=== PATIENT | female | born 1980 | race Caucasian/White ===

== ENCOUNTER → 2024-06-04 07:29 | Outpatient (REF) | payer OTHER, SELFPAY | LOC: WDC 07:29 | PROVIDERS: ATTENDING PHYSICIAN Nurse Practitioner Adult Health | DX: Z12.31 Encounter for screening mammogram for malignant neoplasm of breast (principal) | CPT/HCPCS: 77063; 77067 ==

== ENCOUNTER 2024-06-15 23:21 | Emergency (ER) | payer OTHER, SELFPAY ==
[2024-06-15 23:28] VITALS: BP 162/116
--- NOTE | 2024-06-16 00:23 | ED.GENMED ---
History of Present Illness
General
Chief Complaint: Breathing Problem
Source: patient
Exam Limitations: none
Time Seen by Provider: 06/16/24 00:12
History of Present Illness
History of Present Illness:
This is a 44 year old female that comes in with c/o cough. Stae that on Friday she went to Urgent care. States that she was told she had Bronchitis and started on Doxycycline. State that she started to get better and then today the cough just
seemed to get worse. States that her chest felt tight. States that she used her Inhaler and she could still hear herself wheezing when she laid down. States that she has had some diarrhea which she feels is due to the antibiotics. States that she
feels slightly SOB. Denies any fever, chills, chest pain, abd pain, nausea, vomiting, headache, dizziness, urinary burning.
Past History
Past History
ED Past Medical History: GERD, Hypothyroidism and Psychiatric (Anxiety, Depression)
ED Past Surgical History: Gynecological (Endometrial ablation, Tubal) and Other (Eye surgery, Sinus surgery)
Social History
Tobacco: Smoker
Alcohol: Occasional
Personal:
Living: with family
Employment: Employed
Review of Systems
Review of Systems
All Other Systems: ROS reviewed and negative except as documented in HPI and ROS
Constitutional: Reports no symptoms; Denies fever or chills
EENT: Reports no symptoms
Respiratory: Reports cough and trouble breathing
Cardiac: Reports no symptoms; Denies chest pain
ABD/GI: Reports diarrhea; Denies abdominal pain, nausea or vomiting
: Reports no symptoms; Denies dysuria, frequency or urgency
Musculoskeletal: Reports no symptoms
Skin: Reports no symptoms
Neurological: Reports no symptoms; Denies dizzy or headache
Psychiatric: Reports no symptoms
Phy Exam
General Physical Exam
General Presentation: well appearing and no apparent distress
General age: appears stated age
General Skin: warm and dry
General Habitus: normal
General Mental: alert
General Hydration: appears well hydrated
ENT Exam
ENT Exam: TM's normal, pharynx normal and neck supple
Eye Exam
Eye Exam: EOMI
Cardiovascular Exam
Cardiovascular Exam: regular rate/rhythm, no edema, no murmur and normal peripheral pulses
Pulmonary Exam
Pulmonary Exam: no respiratory distress, no rales, chest non tender, no crackles, no rhonchi and other (Dry Cough noted. rare exp wheeze at left base noted)
Gastrointestinal Exam
Gastrointestinal Exam: normal bowel sounds, non tender, soft, no organomegaly, no pulsatile mass and non distended
Musculoskeletal Exam
Musculoskeletal Exam: full ROM and no edema
Skin Exam
Skin Exam: normal color, warm/dry, no rash and no petechia
Psychiatric Exam
Psychiatric Exam: normal mood/affect
Course
Orders/Labs/Results
Orders:
Orders
06/15/24 23:36
Chest [CR Chest - 2 Views ] Urgent
Comment:
Reason For Exam: wheezing cough, +bronchitis
06/16/24 00:23
Prednisone [Deltasone] 40 mg PO NOW STA
Vital Signs
Initial and Last Documented VS:
Initial Vital Signs
Temp Pulse Resp BP Pulse Ox
98.4 F 90 22 162/116 98
06/15/24 23:28 06/15/24 23:28 06/15/24 23:28 06/15/24 23:28 06/15/24 23:28
Last Documented Vital Signs
Temp Pulse Resp BP Pulse Ox
98.4 F 90 22 162/116 98
06/15/24 23:28 06/15/24 23:28 06/15/24 23:28 06/15/24 23:28 06/15/24 23:28
MDM/Problems Addressed
Differential Diagnosis Includes:
Viral syndrome, Bronchitis. PNA
MDM/Problems Addressed:
This is a 44 year old female that comes in with c/o cough. States that she is on Doxycycline for Bronchitis which was given to her from on Friday. States that she was getting better and then today her cough seemed to get worse. States that she
was worried about Pneumonia.
Explained that her chest X-ray is normal. Will give patient a steroid to help decrease the inflammation and cough Patient to continue with her antibiotic and can use her inhaler. Follow up with the Family doctor. Return with any concerns.
Chronic conditions affecting care:
NA
Acute Exacerbation and/or Progression of Chronic Illness:
NA
*Radiology
Radiology exam reviewed: preliminary read by ED provider (Chest- Negative for cardiopulmonary disease)
*Pulse Oximetry
Patient hypoxic: no
*EKG
Interpreted by ED Provider?: NA
Rate: EKG- N/A
*X Ray Technologist Interpretation
Rate: X Ray Technologist- N/A
*Critical Care Note
Total Time (30-74mins, 75-104mins- exclusive of procedures): Not Applicable
ED Attending Note
-
Portions of this chart may have been created with voice recognition software.� Occasional wrong word or��sound alike� substitutions may have occurred due to the inherent limitations of voice recognition software.
Discharge Plan
Departure
Patient Disposition: Home (Routine Discharge)
Date of Disposition: 06/16/24
Time of Disposition: 00:31
Patient with high blood pressure during this ER visit?: Yes
Condition: Good
Covid-19: Not Applicable
Discharge Problem:
Cough in adult
Instructions: Cough, Adult ED, BLOOD PRESSURE
Prescriptions:
New
prednisone 20 mg tablet
40 mg PO DAILY Qty: 8 0RF
No Action
Levothyroxine
88 mcg PO DAILY
spironolactone 100 mg Tablet
100 mg PO DAILY
omeprazole 40 mg Capsule,Delayed Release(Dr/Ec)
40 mg PO DAILY
Referrals:
Mana Echevarria CRNP [Family Provider] - Call in 1-3 days for appt
Activity Restrictions/Additional Instructions:
As discussed, your chest X-ray is negative for any Pneumonia. Please continue with your antibiotic as prescribed and your inhaler. Please increase your water intake to 8-8oz glasses daily. You have been given a steroid here and a prescription has
been sent to your pharmacy for the next 4 days. This will help decrease inflammation and help decrease the cough. Follow up with the family doctor for further evaluation. IF OU HAVE ANY OTHER CONCERNS PLEASE RETURN TO THE EMERGENCY ROOM
Interventions
Interventions:
*Risk Screen - Suicide Last Done: 06/15/24 23:28
*General Assessment Last Done: 06/16/24 00:27
*Neglect/Abuse Screening Last Done: 06/15/24 23:28
*ED COVID-19 Vaccine History Last Done: 06/16/24 00:27
Discharge Date and Time
Print Language: SINHALA
[2024-06-16 00:28] VITALS: BP 153/106
[2024-06-16] MEDS: DELTASONE 40 MG PO (00:40)
== END 2024-06-16 00:49 | disposition home or self-care (01) ==
LOC: EMR 23:21
PROVIDERS: EMERGENCY PHYSICIAN Student in an Organized Health Care Education/Training Program; FAMILY PHYSICIAN Nurse Practitioner Adult Health
DX: R05.9 Cough, unspecified (principal); K21.9 Gastro-esophageal reflux disease without esophagitis; E03.9 Hypothyroidism, unspecified; F41.8 Other specified anxiety disorders; F17.200 Nicotine dependence, unspecified, uncomplicated
CPT/HCPCS: 99283; 71046

== ENCOUNTER → 2024-08-30 14:38 | Outpatient (REF) | payer OTHER, SELFPAY | LOC: RAD 14:38 | PROVIDERS: ATTENDING PHYSICIAN Internal Medicine Endocrinology, Diabetes & Metabolism; FAMILY PHYSICIAN Nurse Practitioner Adult Health | DX: E04.2 Nontoxic multinodular goiter (principal) | CPT/HCPCS: 76536 ==

== ENCOUNTER → 2025-02-16 09:04 | Outpatient (REF) | payer OTHER, SELFPAY | LOC: WDC 09:04 | PROVIDERS: ATTENDING PHYSICIAN Nurse Practitioner Adult Health | DX: N63.24 Unspecified lump in the left breast, lower inner quadrant (principal) | CPT/HCPCS: 76642; 77061; 77065 ==